=== PATIENT | female | born 2000 | race Two or more races ===

== ENCOUNTER 2021-10-20 16:46 | Emergency (ER) | payer BC, SELFPAY ==
--- NOTE | ~2021-10-20 | CT_ITS ---
EXAMINATION: CT abdomen pelvis w con DATE: 10/20/2021 19:37 INDICATION: Left lower quadrant abdominal pain TECHNIQUE: Computed tomography (CT) of the abdomen and pelvis was performed with 100 mL Omnipaque-350 intravenous contrast. Automated exposure control and iterative reconstruction technique were employe d. The dose-length product was 192.74 mGy-cm. COMPARISON: None FINDINGS: Lung bases are clear. Heart size is normal. No pericardial or pleural effusion. Liver, gallbladder, s pleen, pancreas, bilateral adrenal glands and kidneys are normal. 2.6 cm left ovarian cyst. Right ova ry, uterus and bladder are normal. Bowels including the appendix are normal. No free intraperitoneal gas. Minimal likely physiologic free fluid in the cul-de-sac. No pathologically enlarged abdominal or pelvic lymphadenopathy. Lumbarized S1 segment. IMPRESSION: 1. 2.6 cm left ovarian cyst and minimal likely physiologic free fluid in the cul-de-sac. No other acu te intra-abdominal/pelvic process. Reviewed, dictated and finalized at location [facility]. ER SHOULDER PAD IMPRESSION: 1. 2.6 cm left ovarian cyst and minimal likely physiologic free fluid in the cu l-de-sac. No other acute intra-abdominal/pelvic process.
[2021-10-20 16:54] VITALS: BP 127/67; PULSE 90; RESP 18; TEMP 36.6; O2SAT 100
[2021-10-20] MEDS: FAMOTIDINE 20 MG/2 ML VIAL IV PUSH (18:52)
[2021-10-20] MEDS: ONDANSETRON INJ 4 MG/2 ML VIAL IV PUSH (18:52)
[2021-10-20] MEDS: SODIUM CHLORIDE 0.9% IV 1,000 ML 999 ML IV CONT (18:53)
[2021-10-20 18:59] LABS: Basophils Absolute Auto 0.1 K/mm3 (0.0-0.1); Basophils Percent Auto 0.7 % (0.2-1.2); Eosinophils Absolute Auto 0.1 K/mm3 (0-0.3); Eosinophils Percent Auto 0.6 % (0-4.4); Hematocrit 32.7 % (37.0-47.0); Hemoglobin 10.9 g/dL (12.0-15.0); Immature Granulocyte Absolute 0.04 K/mm3 (0.00-0.031); Immature Granulocyte Percent A 0.4 % (0-0.5); Lymphocytes Absolute Auto 2.54 K/mm3 (0.9-3.2); Lymphocytes Percent Auto 27.1 % (18.3-44.2); Mean Corpuscular HGB Conc 33.3 g/dl (32-36); Mean Corpuscular Hemoglobin 30.9 pg (26-34); Mean Corpuscular Volume 92.6 fl (80-100); Mean Platelet Volume 8.8 fl (7.4-10.4); Monocytes Absolute Auto 0.7 K/mm3 (0.1-0.6); Monocytes Percent Auto 7.2 % (2.6-8.5); Platelet Count Result 257 k/mm3 (150-375); Red Blood Count 3.53 M/mm3 (4.2-5.4); Red Cell Distribution Width 12.4 % (11.5-14.5); White Blood Count 9.4 K/mm3 (4.5-10.0)
[2021-10-20 19:05] LABS: Add Urine Microscopic? NO; Appearance Urine Clear (Clear); Bilirubin Urine Negative (Negative); Blood Urine Negative (Negative); Color Urine Straw (Yellow); Glucose Urine UA Negative (Negative); Ketones Urine Negative (Negative); Leukocyte Esterase Ur Negative LEU/UL (Negative); Nitrate Urine Negative (Negative); Protein Urine Negative (Negative); Urobilinogen Urine Negative mg/dL (<2.0)
[2021-10-20 19:15] LABS: Specific Grav Ur 1.003 (1.001-1.035)
[2021-10-20 19:16] LABS: Alanine Aminotransferase 15 U/L (4-35); Albumin Level 4.4 g/dL (3.5-5.1); Alkaline Phosphatase 42 U/L (38-126); Anion Gap 8 mmol/L (8-16); Aspartate Amino Transferase 22 U/L (14-36); Bilirubin,Total 0.5 mg/dL (0.2-1.3); Blood Urea Nitrogen 8 mg/dL (7-17); Calcium 9.3 mg/dL (8.4-10.2); Carbon Dioxide 25 mmol/L (22-30); Chloride 104 mmol/L (98-107); Estimated CRCL calculation 51 ml/min; Estimated Glomerular Filt Rate > 60; Glucose 68 mg/dL (65-110); Lipase 129 U/L (23-300); Potassium 3.8 mmol/L (3.4-5.0); Sodium 137 mmol/L (137-145)
--- NOTE | 2021-10-20 20:09 | ED.GENADULT ---
HPI - General Adult General Chief complaint: Abdominal Pain Stated complaint: Abd pain Time Seen by Provider: 10/20/21 17:04 Source: patient and RN notes reviewed Mode of arrival: ambulatory Limitations: no limitations History of Present Illness HPI narrative: Patient is a 21-year-old female who presents with left adnexal pain for the last 2 days has had a similar occurrence off and on she has not taken anything for her symptoms presents nondistressed denies any fever chills nausea vomiting vaginal bleeding or discharge Related Data Allergies Allergy/AdvReac Type Severity Reaction Status Date / Time No Known Allergies Allergy Verified 10/20/21 16:58 Review of Systems Review of Systems: All systems reviewed & are unremarkable except as noted in HPI and below PMFSH Past Medical History Medical History Yeast vaginitis secondary to antibiotic Exam Narrative: GENERAL: Well-appearing, well-nourished, and in no acute distress. HEAD: Normocephalic, atraumatic. EYES: PERRLA and EOMI. ENT: Nares clear, no rhinorrhea or epistaxis. Mucous membranes moist. CHEST: Clear to auscultation. No respiratory distress. No wheezes rales or rhonchi HEART: Regular rate and rhythm. No murmur heard. Normal peripheral pulses. ABDOMEN: Soft, left adnexal tenderness remainder of abdomen nontender no rebound or guarding, nondistended EXTREMITIES: Normal range of motion. No edema. SKIN: Warm, dry, no rash. NEURO: No focal deficits. Alert and oriented x3. Cranial nerves II through XII grossly intact PSYCH: Normal mood and affect. 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 afebrile nontoxic-appearing nondistressed felt appropriate for outpatient reevaluation Vital Signs Vital signs: Vital Signs Temperature 97.8 F 10/20/21 16:54 Pulse Rate 90 10/20/21 16:54 Respiratory Rate 18 10/20/21 16:54 Blood Pressure 127/67 10/20/21 16:54 Pulse Oximetry 100 10/20/21 16:54 Temperature 97.8 F 10/20/21 16:54 Pulse Rate 90 10/20/21 16:54 Respiratory Rate 18 10/20/21 16:54 Blood Pressure 127/67 10/20/21 16:54 Pulse Oximetry 100 10/20/21 16:54 Medical Decision Making MDM Narrative Medical decision making narrative: Patient found to have ovarian cyst as etiology of her symptoms she is feeling much better with medications nontoxic-appearing nondistressed will be discharged home with outpatient follow-up Vital Signs Vital Signs: Vital Signs Temperature 97.8 F 10/20/21 16:54 Pulse Rate 90 10/20/21 16:54 Respiratory Rate 18 10/20/21 16:54 Blood Pressure 127/67 10/20/21 16:54 Pulse Oximetry 100 10/20/21 16:54 Temperature 97.8 F 10/20/21 16:54 Pulse Rate 90 10/20/21 16:54 Respiratory Rate 18 10/20/21 16:54 Blood Pressure 127/67 10/20/21 16:54 Pulse Oximetry 100 10/20/21 16:54 Lab Data Result diagrams: 10/20/21 18:47 10/20/21 18:47 Labs: Lab Results 10/20/21 10/20/21 10/20/21 Range/Units 18:47 18:47 18:47 WBC 9.4 (4.5-10.0) K/mm3 RBC 3.53 L (4.2-5.4) M/mm3 Hgb 10.9 L (12.0-15.0) g/dL Hct 32.7 L (37.0-47.0) % MCV 92.6 (80-100) fl MCH 30.9 (26-34) pg MCHC 33.3 (32-36) g/dl RDW 12.4 (11.5-14.5) % Plt Count 257 (150-375) k/mm3 MPV 8.8 (7.4-10.4) fl Immature Gran % (Auto) 0.4 (0-0.5) % Neut % (Auto) 64.0 (45.5-73.1) % Lymph % (Auto) 27.1 (18.3-44.2) % Dolores % (Auto) 7.2 (2.6-8.5) % Eos % (Auto) 0.6 (0-4.4) % Baso % (Auto) 0.7 (0.2-1.2) % Lymph # (Auto) 2.54 (0.9-3.2) K/mm3 Dolores # (Auto) 0.7 H (0.1-0.6) K/mm3 Eos # (Auto) 0.1 (0-0.3) K/mm3 Baso # (Auto) 0.1 (0.0-0.1) K/mm3 Abs Immat Gran (auto) 0.04 H (0.00-0.031) K/mm3 Absolute Neuts (auto) 6.0 (1.3-6.7) K/mm3 Absolute Nucleate
[2021-10-20 20:30] VITALS: BP 123/69; PULSE 82; RESP 16; O2SAT 97
== END 2021-10-20 20:31 | disposition home or self-care (01) ==
PROVIDERS: Emergency Medicine Emergency Medical Services; Emergency Provider Emergency Medicine; PCP Internal Medicine
DX: N83.202 Unspecified ovarian cyst, left side (principal)
CPT/HCPCS: 36415; 74177; 80053; 81003; 81025; 83690; 85025; 96361; 96374; 96375; 99284; J0131; J2405; J7030; Q9967

== ENCOUNTER → 2021-12-30 14:16 | Outpatient (CLI) | payer BC, SELFPAY ==
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
== END ==
PROVIDERS: PCP Internal Medicine; Visit Provider Internal Medicine
DX: S22.20XA Unspecified fracture of sternum, initial encounter for closed fracture (principal); X58.XXXA Exposure to other specified factors, initial encounter
CPT/HCPCS: 71250

== ENCOUNTER → 2022-02-13 12:58 | Outpatient (CLI) | payer BC, SELFPAY ==
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
== END ==
PROVIDERS: PCP Internal Medicine; Visit Provider Internal Medicine
DX: S22.20XA Unspecified fracture of sternum, initial encounter for closed fracture (principal); X58.XXXA Exposure to other specified factors, initial encounter
CPT/HCPCS: 71250